=== PATIENT | female | born 1950 | race Caucasian/White ===

== ENCOUNTER 2017-09-05 06:31 | Day surgery (SDC) | payer MEDICARE ==
[~2017-09-05 06:31] MED LIST: ADVIL PM1 CAP PO; ARMOUR THYRO30 MG; FLUOXETINE20 MG PO; LEVOTHROID125 MCG PO; METFORMIN500 MG PO; OMEPRAZOLE20 MG PO; ONDANSETRON HCL4 MG PO; OXYCO/APAP1 TA5 PO; RYBIX ODT50 MG PO; SIMVASTATIN40 MG PO; SOMA350 MG
[2017-09-05 13:09] VITALS: BP 165/77
== END 2017-09-05 09:20 | disposition home or self-care (01) ==
LOC: ORM 06:31
PROVIDERS: ATTEND Anesthesiology Pain Medicine
PROC: 3E0U33Z Introduction of Anti-inflammatory into Joints, Percutaneous Approach (ICD-10-PCS; principal; 2017-09-05)
PROC: 3E0U3BZ Introduction of Anesthetic Agent into Joints, Percutaneous Approach (ICD-10-PCS; 2017-09-05)
PROC: 3E0U33Z Introduction of Anti-inflammatory into Joints, Percutaneous Approach (ICD-10-PCS; 2017-09-05)
PROC: 3E0U3BZ Introduction of Anesthetic Agent into Joints, Percutaneous Approach (ICD-10-PCS; 2017-09-05)
DX: M46.1 Sacroiliitis, not elsewhere classified (principal); M70.62 Trochanteric bursitis, left hip
CPT/HCPCS: 20610; G0260

== ENCOUNTER 2017-09-19 07:32 | Day surgery (SDC) | payer MEDICARE ==
[~2017-09-19] VITALS: Ht 157.5 cm; Wt 72.1 kg
[2017-09-19] MEDS ORDERED: HYDROCO/APAP1 TA9 PO ×2 (08:49→10:02)
[2017-09-19 09:44] VITALS: BP 147/68
== END 2017-09-19 10:14 | disposition home or self-care (01) ==
LOC: ORM 07:32
PROVIDERS: ATTEND Anesthesiology Pain Medicine
PROC: 3E0U33Z Introduction of Anti-inflammatory into Joints, Percutaneous Approach (ICD-10-PCS; principal; 2017-09-19)
PROC: 3E0U3BZ Introduction of Anesthetic Agent into Joints, Percutaneous Approach (ICD-10-PCS; 2017-09-19)
PROC: 3E0U3BZ Introduction of Anesthetic Agent into Joints, Percutaneous Approach (ICD-10-PCS; 2017-09-19)
PROC: 3E0U33Z Introduction of Anti-inflammatory into Joints, Percutaneous Approach (ICD-10-PCS; 2017-09-19)
PROC: BQ111ZZ Fluoroscopy of Left Hip using Low Osmolar Contrast (ICD-10-PCS; 2017-09-19)
PROC: BQ101ZZ Fluoroscopy of Right Hip using Low Osmolar Contrast (ICD-10-PCS; 2017-09-19)
DX: M46.1 Sacroiliitis, not elsewhere classified (principal); M70.62 Trochanteric bursitis, left hip; M70.61 Trochanteric bursitis, right hip; M54.5 Low back pain
CPT/HCPCS: 20610; G0260

== ENCOUNTER 2019-03-12 | Day surgery (SDC) | payer MEDICARE ==
[~2019-03-12] MED LIST changes: +HYDROCO/APAP1 TA9 PO; +HYDROCODONE/ACE1 TAB PO; +SOMA350 MG PO; +TRAMADOL HCL50 MG PO; +TRULICITY0.75 MG/0.; +ZOLOFT25 MG PO
== END 2019-03-12 10:44 | disposition home or self-care (01) ==
DX: M46.1 Sacroiliitis, not elsewhere classified (principal); M70.72 Other bursitis of hip, left hip; M70.71 Other bursitis of hip, right hip

== ENCOUNTER 2019-03-26 | Day surgery (SDC) | payer MEDICARE | END 2019-03-26 10:35 | disposition home or self-care (01) | DX: M46.1 Sacroiliitis, not elsewhere classified (principal); M70.71 Other bursitis of hip, right hip; M70.22 Olecranon bursitis, left elbow ==

== ENCOUNTER 2019-12-31 06:13 | Day surgery (SDC) | payer MEDICARE ==
[~2019-12-31] VITALS: Ht 157.5 cm; Wt 73.9 kg
[2019-12-31 07:53] VITALS: BP 149/82
== END 2019-12-31 08:45 | disposition home or self-care (01) ==
LOC: ORM 06:13
PROVIDERS: ATTEND Anesthesiology Pain Medicine
DX: M54.2 Cervicalgia (principal); M47.892 Other spondylosis, cervical region; Z01.84 Encounter for antibody response examination
CPT/HCPCS: Q9967